=== PATIENT | female | born 2000 | race Caucasian/White ===

== ENCOUNTER 2024-06-05 11:32 | Outpatient (REF) | payer MEDICAID, SELFPAY ==
[2024-06-06 20:08] LABS: Trich vag by NAA Negative (Negative)
== END 2024-06-05 11:33 | disposition home or self-care (01) ==
LOC: LAB 11:32
PROVIDERS: PCP Nurse Practitioner; Visit Provider Nurse Practitioner
DX: N89.8 Other specified noninflammatory disorders of vagina (principal)
CPT/HCPCS: 87491; 87591; 87661